=== PATIENT | female | born 1955 | race Caucasian/White ===

== ENCOUNTER 2019-04-01 09:33 | Outpatient (CLI) | payer OTHER ==
--- NOTE | 2019-04-01 10:28 | MRI ---
BRAIN MRI WITHOUT CONTRAST: Date: 04/01/2019 COMPARISON: None. HISTORY: Intermittent headaches, worsening over the past 3 months. TECHNIQUE: Multiplanar multisequence MR imaging of the brain obtained without contrast. FINDINGS: The diffusion weighted imaging demonstrates no evidence for acute infarction. The axial gradient echo imaging demonstrates no evidence for intracranial hemorrhage. The imaged paranasal sinuses and mastoid air cells are grossly unremarkable. Arterial flow voids at t he axial level of the skull base appear within normal limits on the T2-weighted imaging. Regional bone marrow signal intensity is unremarkable. There are a few scattered foci of increased T2 and FLAIR signal within the white matter suggesting mi nimal small vessel disease. IMPRESSION: No acute findings. Transcribed Date/Time: 04/01/2019 10:32 AM
== END 2019-04-01 09:34 | disposition home or self-care (01) ==
LOC: SCSMRI 09:33
PROVIDERS: ATTEND Psychiatry & Neurology Neurology
DX: R51 Headache (principal)
CPT/HCPCS: 70551